=== PATIENT | male | born 1980 | race Caucasian/White ===

== ENCOUNTER 2019-08-27 10:00 | Emergency (ER) | payer BC, OTHER ==
[~2019-08-27] VITALS: Ht 180.3 cm; Wt 94.7 kg
[2019-08-27] MEDS ORDERED: IBUPROFEN 800 MG (MOTRIN) TAB PO STA (10:20)
--- NOTE | 2019-08-27 10:31 | Diagnostic Imaging Report ---
INDICATION: Left wrist pain post fall TECHNIQUE: 3 views of the left wrist CORRELATION STUDY: None FINDINGS: There is narrowing at the radiocarpal row. Well-corticated bone fragment tip of the ulnar styloid process may reflect a more remote injury. Slight lucency over the dorsal carpal row likely reflects summation shadows. No definitive evidence for acute fracture. There is noted amputation at the proximal phalanx of the thumb. The visualized soft tissues appearing unremarkable. IMPRESSION: 1. Negative for acute fracture of the left wrist. Mild degenerative changes and likely prior traumatic change are noted. Dictated by: Dictated on workstation # [id number]
--- NOTE | 2019-08-27 10:37 | ED Upper Extremity ---
General Chief Complaint: Upper Extremity Stated Complaint: PT THINKS HE BROKE LT WRIST Nursing Triage Note: Patient reports he tripped and fell backwards last night around 9 pm, landing on his left wrist. He reports taking tramadol last night for pain, nothing since then. Continued pain and stiffnes today. Nursing Sepsis Screen: No Definite Risk Source: patient History of Present Illness Date Seen by Provider: August 27, 2019 Time Seen by Provider: 10:04 Initial Comments 39-year-old male presenting with complaints of left wrist pain. He was painting at home last night and tripped over some things on the floor. In the process he fell backwards and caught himself with his outstretched arms. He has had instant pain in the left wrist at the time of the accident which has continued to into today. He did try taking some tramadol which he has from knee and back pain. This morning he was still having a lot of pain and stiffness with movement in the left wrist so he came to the emergency department to see if there might be a fracture. He has no numbness or tingling. There is normal range of motion of his fingers. There is increased pain with any movement or palpation of his wrist. Allergies and Home Medications Allergies Coded Allergies: theophylline (Verified Allergy, Unknown, 08/27/19) Home Medications Hydrocodone/Acetaminophen 1 Each Tablet, 1 EACH PO Q6H PRN for PAIN-SEVERE (8- 10) Prescribed by: MELANIA ARRINGTON on 08/27/19 1104 Ibuprofen 800 Mg Tablet, 800 MG PO Q8H PRN for PAIN Prescribed by: MELANIA ARRINGTON on 08/27/19 1103 Patient Home Medication List Home Medication List Reviewed: Yes Review of Systems Constitutional: no symptoms reported EENTM: no symptoms reported Respiratory: no symptoms reported Cardiovascular: no symptoms reported Gastrointestinal: no symptoms reported Genitourinary: no symptoms reported Musculoskeletal: see HPI Skin: no symptoms reported Psychiatric/Neurological: See HPI Past Szfhyex-Gozjel-Yjggop Hx Past Med/Social Hx: Reviewed Nursing Past Med/Soc Hx Patient Social History Alcohol Use: Regular Use Number of Drinks Today: 0 Alcohol Beverage of Choice: Beer Recreational Drug Use: No Smoking Status: Current Everyday Smoker Type Used: Cigarettes 2nd Hand Smoke Exposure: No Recent Foreign Travel: No Contact w/Someone Who Travel: No Recent Infectious Disease Expo: No Recent Hopitalizations: No Physical Abuse: No Sexual Abuse: No Mistreated: No Fear: No Seasonal Allergies Seasonal Allergies: No Past Medical History Surgeries: No Respiratory: No Cardiac: Yes High Cholesterol, Hypertension Neurological: No Genitourinary: No Gastrointestinal: No Musculoskeletal: No Endocrine: No HEENT: No Cancer: No Psychosocial: No Integumentary: No Physical Exam Vital Signs Vital Signs - First Documented 08/27/19 10:03 Temp 36.6 Pulse 80 Resp 20 B/P (MAP) 148/97 (114) Pulse Ox 100 O2 Delivery Room Air Capillary Refill : Less Than 3 Seconds Height, Weight, BMI Height: '" Weight: lbs. oz. kg; 29.00 BMI Method: General Appearance: WD/WN, no apparent distress Cardiovascular: normal peripheral pulses Wrist: No deformity, No ecchymosis; Yes limited ROM (left wrist due to pain), Yes pain (left wrist), Yes soft tissue tenderness (left wrist), Yes swelling (mild swelling to left wrist) Hand: normal inspection, no evidence of injury, normal ROM Neurologic/Tendon: normal sensation, normal motor functions Neurologic/Psychiatric: alert, normal mood/affect, oriented x 3 Skin: normal color, warm/dry Progress/Results/Core Measures Results/Orders My Orders Orders - MELANIA ARRINGTON MD Wrist 3 View Left (08/27/19 10:19) Ice: Apply To Affected Area (08/27/19 10:20) Elevate Affected Extremity (08/27/19 10:20) Ibuprofen Tablet (Motrin Tablet) (08/27/19 10:20) Cockup Splint (08/27/19 10:59) Vital Signs/I&O 08/27/19 08/27/19 10:03 11:26 Temp 36.6 36.6 Pulse 80 80 Resp 20 20 B/P (MAP) 148/97 (114) 148/97 Pulse Ox 100 100 O2 Delivery Room Air Room Air Blood Pressure Mean: 114 Progress Progress Note #1: Progress Note Ibuprofen, ice and elevation for pain. Obtain x-rays of the left wrist. Progress Note #2: Progress Note No acute fracture or dislocation seen on the x-rays. Reviewed results with the patient. Will try a cockup wrist splint to the left wrist. If not improved in 5- 7 days may need repeat imaging to look for an occult fracture. Counseled on follow-up and return precautions. Diagnostic Imaging Diagonstic Imaging: Xray Plain Films/CT/US/NM/MRI: other (left wrist) Comments NAME: KAMRAN HUBER [facility] REC#: [id number] PT STATUS: REG ER : 1980 PHYSICIAN: MELANIA ARRINGTON MD ADMIT DATE: 08/27/19/ER FS Draft Date of Exam:08/27/19 WRIST 3 VIEW LEFT INDICATION: Left wrist pain post fall TECHNIQUE: 3 views of the left wrist CORRELATION STUDY: None FINDINGS: There is narrowing at the radiocarpal row. Well-corticated bone fragment tip of the ulnar styloid process may reflect a more remote injury. Slight lucency over the dorsal carpal row likely reflects summation shadows. No definitive evidence for acute fracture. There is noted amputation at the proximal phalanx of the thumb. The visualized soft tissues appearing unremarkable. IMPRESSION: 1. Negative for acute fracture of the left wrist. Mild degenerative changes and likely prior traumatic change are noted. Dictated on workstation # [id number] Dict: 08/27/19 1025 Trans: 08/27/19 1031 ARMEN [id number] Interpreted by: PEGGY COOPER DO Electronically signed by: Departure Impression Primary Impression: Unspecified sprain of left wrist, initial encounter Additional Impression: Fall Qualified Codes: W19.XXXA - Unspecified fall, initial encounter Disposition: 01 HOME, SELF-CARE Condition: Stable Departure-Patient Inst. Decision time for Depature: 11:00 Referrals: [facility] [place] Patient Instructions: Common Wrist Injuries (DC), Wrist Sprain (DC) Add. Discharge Instructions: Use the splint to help with your wrist pain. Wear it at all times other then when you are bathing. Ice 15-20 minutes every few hours as needed for pain and swelling. Try to elevate your wrist and hand as much as possible to help with pain and swelling. Follow up with your primary doctor/provider at end of this week or next week if pain and symptoms are not improving as you may need to have repeat xray or further imaging to check for hairline fracture All discharge instructions reviewed with patient and/or family. Voiced understanding. Scripts Ibuprofen (Ibuprofen) 800 Mg Tablet 800 MG PO Q8H PRN for PAIN for 10 Days, #30 TAB 0 Refills Prov: MELANIA ARRINGTON MD 08/27/19 Hydrocodone/Acetaminophen (Hydrocodone-Acetamin 5-325 mg) 1 Each Tablet 1 EACH PO Q6H PRN for PAIN-SEVERE (8-10) for 3 Days, #12 TAB 0 Refills Prov: MELANIA ARRINGTON MD 08/27/19 Work/School Note: Work Release Form Date Seen in the Emergency Department: August 27, 2019 Return to Work: Aug 28, 2019 Other Restrictions Listed Below: Wear splint left wrist for the next week. Limit duty as tolerated by MELANIA Huber MD August 27, 2019 10:37
[2019-08-27] MEDS ORDERED: HYDR-83 PO (11:03)
[2019-08-27] MEDS ORDERED: IBUP-1780 PO (11:03)
[2019-08-27 11:26] VITALS: BP 148/97
== END 2019-08-27 11:20 | disposition home or self-care (01) ==
LOC: EDUNIT# 10:00 → ER FS 10:03
DX: S63.92XA Sprain of unspecified part of left wrist and hand, initial encounter (principal); F17.210 Nicotine dependence, cigarettes, uncomplicated; Z88.8 Allergy status to other drugs, medicaments and biological substances; W01.0XXA Fall on same level from slipping, tripping and stumbling without subsequent striking against object, initial encounter; Y92.009 Unspecified place in unspecified non-institutional (private) residence as the place of occurrence of the external cause
CPT/HCPCS: 73110

== ENCOUNTER → 2020-10-09 | Outpatient (CLI) | payer BC ==
[~2020-10-09] MED LIST: ACHD5005 PO; IBUP-1780 PO
--- NOTE | 2020-10-09 13:38 | Diagnostic Imaging Report ---
EXAMINATION: Left ribs unilateral 2 view HISTORY: PLEURODYNIA COMPARISON: None available. FINDINGS: Left anterior 7th and 8th rib fractures with minimal displacement. No pneumothorax. The lungs are clear. No edema. No pneumonia. No pleural effusion. Heart is normal in size. IMPRESSION: 1. Left anterior 7th and 8th rib fractures with minimal displacement. Dictated by: Dictated on workstation # [id number]
== END ==
LOC: RAD FS 13:14
PROVIDERS: ATTEND Family Medicine
DX: S22.42XA Multiple fractures of ribs, left side, initial encounter for closed fracture (principal); X58.XXXA Exposure to other specified factors, initial encounter
CPT/HCPCS: 71101